=== PATIENT | male | born 1950 | race Caucasian/White ===

== ENCOUNTER 2024-11-23 07:22 | Day surgery (SDC) | payer BC, MEDICARE, SELFPAY ==
[2024-11-19 13:33] VITALS: BMI 37.9
[2024-11-19 13:59] LABS: % Basophils 0.1 % (0-2); % Eosinophils 1.9 % (0-6); % Immature Granulocytes 0.3 % (0-0.5); % Lymphocytes 10.6 % (20.5-51.1); % Monocytes 8.3 % (1.7-9.3); % Neutrophils 78.8 % (42.2-75.2); Absolute Eosinophils 0.1 10^3/uL (0-0.7); Absolute Lymphocytes 0.8 10^3/uL (1.2-3.4); Absolute Monocytes 0.6 10^3/uL (0.1-0.6); Absolute Neutrophils 5.7 10^3/uL (1.4-6.5); Hematocrit 35.2 % (39.0-52.0); Hemoglobin 12.2 g/dL (13.0-18.0); Mean Corp Hgb Conc. 34.7 g/dL (33.0-37.0); Mean Corpuscular Hgb 30.4 pg (27.0-31.0); Mean Corpuscular Volume 87.8 fL (80.0-94.0); Mean Platelet Volume 9.3 fL (7.4-10.4); Nucleated Red Blood Cells % 0 % (-); Platelet Count 274 10^3/uL (130-400); Red Blood Cell Count 4.01 10^6/uL (4.70-6.10); Red Cell Dist. Width 13.5 % (11.5-14.5); White Blood Cell Count 7.2 10^3/uL (4.8-10.8)
[2024-11-19 15:00] LABS: ALT (SGPT) 24 U/L (0-50); AST (SGOT) 23 U/L (17-59); Albumin 3.9 g/dl (3.5-5.0); Alkaline Phosphatase 130 U/L (38-126); Blood Urea Nitrogen 21 mg/dl (9-20); Calcium 9.5 mg/dl (8.4-10.2); Carbon Dioxide 25 mmol/L (22-30); Chloride 105 mmol/L (98-107); Estimated Creatinine Clearance 73 ml/min; Glucose 152 mg/dl (70-99); Potassium 4.3 mmol/L (3.5-5.1); Sodium 139 mmol/L (135-145); Total Bilirubin 0.5 mg/dl (0.2-1.3); Total Protein 6.7 g/dl (6.3-8.2); eGFR > 60.00
[2024-11-23] VITALS (9 sets, daily range): BP systolic 120–164; BP diastolic 73–114; BMI 38.0
--- NOTE | 2024-11-23 10:04 | ITS.CL.PN ---
[employer] - Procedure Note
Procedure
Procedure Note:
CARDIAC CATHETERIZATION REPORT
Date of Procedure: 11/23/2024
Referring: Dr. Reinaldo Alonzo MD
Indication: dyspnea on exertion, positive cardiac stress test
PROCEDURE(S)
1. right heart catheterization
2. left heart catheterization
3. coronary angiography
ACCESS
1. 6F right radial artery (closure: radial band)
2. 5F right antecubital vein (closure: manual hemostasis)
CATHETERS
1. 5F [place]
2. 6F JR4
3. 6F JL3.5
MODERATE SEDATION: 25 minutes of moderate sedation was utilized. An independent medical technician assistant was present to assist with and help manage the patient's level of consciousness and physiologic status.
HEMODYNAMIC DATA
LV 119/15 (EDP 18) mmHg
AO 113/75 (mean 91) mmHg
RA 15 mmHg
RV 27/10 (EDP 13) mmHg
PA 25/19 (mean 20) mmHg
PCWP 14 mmHg
SaO2 92.7%
SvO2 61.6%
Hb 11.7 g/dL
CO/CI 5.5/2.53 L/min/m2
SVR 1098 dsc*-5
PVR 1.1 [place] units
CORONARY ANGIOGRAPHY
Dominance: Right
LM: Large, normal
LAD: Large vessel giving rise to a large diagonal branch. There is a focal 90% stenosis in the distal apical LAD and otherwise mild luminal irregularities.
Ramus: Moderate caliber vessel with no coronary artery disease.
LCx: Large vessel giving rise to a large OM1 and small LPL branch. There are trivial luminal irregularities only.
RCA: Large vessel giving rise to a large RPDA and large RPL branch. There are trivial luminal irregularities only.
RADIATION: dose 344.48 mGy; DAP 24.7037 Gy*cm2; fluoroscopy time 5.4 min
CONCLUSIONS
1. Mild coronary artery disease right dominant system with focal severe stenosis in the very distal/apical LAD likely explaining the patient's stress test positivity.
2. Elevated right greater than left-sided filling pressures, normal pulmonary artery pressure, and normal cardiac output. No aortic stenosis on hemodynamic pullback
RECOMMENDATIONS
1. Medical management of HFpEF and Afib.
2. Secondary prevention of coronary artery disease.
Copy to: Dr. Reinaldo Alonzo MD (refuse collector supervisor); Dr. Christopher Hartmann MD (PCP)
Signed: Jose Alberto Menezes MD, PhD
== END 2024-11-23 12:20 | disposition home or self-care (01) ==
LOC: CATH 07:22
PROVIDERS: ATTENDING PHYSICIAN Student in an Organized Health Care Education/Training Program; FAMILY PHYSICIAN Internal Medicine; OTHER PHYSICIAN Internal Medicine Cardiovascular Disease
DX: I25.10 Atherosclerotic heart disease of native coronary artery without angina pectoris (principal); I48.20 Chronic atrial fibrillation, unspecified; E03.9 Hypothyroidism, unspecified; E66.9 Obesity, unspecified; M19.90 Unspecified osteoarthritis, unspecified site; I50.32 Chronic diastolic (congestive) heart failure; Z68.37 Body mass index [BMI] 37.0-37.9, adult; Z79.01 Long term (current) use of anticoagulants; Z79.1 Long term (current) use of non-steroidal anti-inflammatories (NSAID); Z79.890 Hormone replacement therapy; Z87.442 Personal history of urinary calculi; Z79.899 Other long term (current) drug therapy; M54.30 Sciatica, unspecified side; Z85.46 Personal history of malignant neoplasm of prostate
CPT/HCPCS: 99152; 99153; 36415; 80053; 85025; 93005; 93460; C1894; Q9967